=== PATIENT | female | born 1955 | race Caucasian/White ===

== ENCOUNTER → 2016-08-30 | Outpatient (CLI) | payer OTHER ==
--- NOTE | 2016-08-30 10:40 | REPMRS ---
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 Family history of breast cancer in sister at age 52. Benign ultrasound-guided core biopsy of the right breast, March 30, 2006. Taking unspecified hormones for 4 years 7 months. Digital Woman Screen Mammo: August 30, 2016 - Exam #: [id number] Bilateral CC and MLO view(s) were taken. Technologist: Anusha Bustillos, Technologist Prior study comparison: August 30, 2015, digital woman screen mammo performed at [facility] [facility]. August 27, 2014, digital woman screen mammo performed at [facility]. FINDINGS: There are scattered fibroglandular densities. There has been no change in the appearance of the mammogram from the prior studies. There is a mild amount of residual fibroglandular tissue which is fairly symmetric. There is no interval development of dominant mass, architectural distortion, or clustered microcalcification suggestive of malignancy. ASSESSMENT: BI-RADS/ACR category 1 mammogram. Negative. Recommendation Routine screening mammogram in 1 year (for women over age 40). This mammogram was interpreted with the aid of an FDA-approved computer-aided dectection system. Electronically Signed By: Kehinde Barron MD 08/30/16 [id number]
== END ==
LOC: M WHC 09:05
PROVIDERS: ATTEND Nurse Practitioner Women's Health
DX: Z12.31 Encounter for screening mammogram for malignant neoplasm of breast (principal); Z78.0 Asymptomatic menopausal state

== ENCOUNTER → 2016-10-04 | Outpatient (REF) | payer OTHER ==
[2016-10-04 12:20] LABS: ALBUMIN 3.3 GM/DL (3.2-5.2); ALBUMIN/GLOBULIN RATIO 1.14 (1.00-1.93); ALKALINE PHOSPHATASE 80 U/L (45-117); ALT/SGPT 24 U/L (12-78); ANION GAP 8 MEQ/L (8-16); AST/SGOT 19 U/L (15-37); BILIRUBIN,TOTAL 0.5 MG/DL (0.2-1.0); BLOOD UREA NITROGEN 22 MG/DL (7-18); CALCIUM LEVEL 8.9 MG/DL (8.8-10.2); CARBON DIOXIDE LEVEL 28 MEQ/L (21-32); CHLORIDE LEVEL 107 MEQ/L (98-107); CHOLESTEROL LEVEL 196 MG/DL (<200); CREATININE FOR GFR 0.65 MG/DL (0.55-1.02); GLOMERULAR FILTRATION RATE > 60.0 (>45); GLUCOSE, FASTING 103 MG/DL (80-110); POTASSIUM SERUM 4.5 MEQ/L (3.5-5.1); SODIUM LEVEL 143 MEQ/L (136-145); TOTAL PROTEIN 6.2 GM/DL (6.4-8.2); TRIGLYCERIDES LEVEL 99 MG/DL (<150)
== END ==
LOC: M SFHCCLAY 07:24
PROVIDERS: ATTEND Nurse Practitioner
DX: Z23 Encounter for immunization (principal)

== ENCOUNTER → 2017-01-23 | Outpatient (CLI) | payer OTHER ==
[~2017-01-23] MED LIST: ASPI81TA85 PO; COUM2.5T17 PO; LISI-538 PO; MELO7.5T7 PO; METF500T13 PO; MULT1TAB20 PO; OMEP10CASR PO; PERC5TAB12 PO
[2017-01-23 14:01] LABS: INR 0.86
[2017-01-23 14:28] LABS: MEAN CORPUSCULAR HEMOGLOBIN 30.3 pg (27.0-33.0); MEAN CORPUSCULAR HGB CONC 33.6 g/dl (32.0-36.5); MEAN CORPUSCULAR VOLUME 90.2 fl (80.0-96.0); RED CELL DISTRIBUTION WIDTH 14.1 % (11.5-14.5); WHITE BLOOD COUNT 6.9 K/mm3 (4.0-10.0)
[2017-01-23 14:54] LABS: ALBUMIN 3.4 GM/DL (3.2-5.2); ALBUMIN/GLOBULIN RATIO 1.21 (1.00-1.93); ALKALINE PHOSPHATASE 117 U/L (45-117); ALT/SGPT 139 U/L (12-78); ANION GAP 7 MEQ/L (8-16); AST/SGOT 57 U/L (15-37); BILIRUBIN,TOTAL 0.3 MG/DL (0.2-1.0); BLOOD UREA NITROGEN 23 MG/DL (7-18); CALCIUM LEVEL 8.8 MG/DL (8.8-10.2); CARBON DIOXIDE LEVEL 28 MEQ/L (21-32); CHLORIDE LEVEL 111 MEQ/L (98-107); CREATININE FOR GFR 0.68 MG/DL (0.55-1.02); GLOMERULAR FILTRATION RATE > 60.0 (>45); GLUCOSE, FASTING 92 MG/DL (80-110); POTASSIUM SERUM 4.3 MEQ/L (3.5-5.1); SODIUM LEVEL 146 MEQ/L (136-145); TOTAL PROTEIN 6.2 GM/DL (6.4-8.2)
--- NOTE | 2017-01-23 16:17 | REP ---
CHEST, TWO VIEWS: No comparison. There is no evidence of acute infiltrate. No pleural effusion is seen. The heart is normal in size. The mediastinal silhouette is unremarkable. The visualized osseous structures are intact. There are degenerative changes of the spine. IMPRESSION: No acute pulmonary disease. Signed by Kehinde Barron MD 01/23/2017 05:10 P
--- NOTE | 2017-01-25 19:44 | ECGEPIP ---
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
== END ==
LOC: M ADMPAT 10:23
PROVIDERS: ATTEND Orthopaedic Surgery
DX: Z01.818 Encounter for other preprocedural examination (principal); M17.11 Unilateral primary osteoarthritis, right knee

== ENCOUNTER → 2017-01-31 | Outpatient (REF) | payer OTHER ==
[2017-01-31 18:41] LABS: ALBUMIN 3.9 GM/DL (3.2-5.2); ALBUMIN/GLOBULIN RATIO 1.15 (1.00-1.93); ALKALINE PHOSPHATASE 120 U/L (45-117); ALT/SGPT 48 U/L (12-78); AST/SGOT 19 U/L (15-37); BILIRUBIN,DIRECT < 0.1 MG/DL (0.0-0.2); BILIRUBIN,TOTAL 0.4 MG/DL (0.2-1.0); TOTAL PROTEIN 7.3 GM/DL (6.4-8.2)
[2017-02-02 11:12] LABS: HEP C VIRUS AB SCREEN MEDICARE 0.1 INDEX (<0.8)
== END ==
LOC: M SFHCCLAY 10:11
PROVIDERS: ATTEND Family Medicine
DX: K76.89 Other specified diseases of liver (principal)
CPT/HCPCS: 80076; G0472

== ENCOUNTER 2017-02-05 07:27 | Inpatient (IN) | payer OTHER ==
[2017-01-23 11:24] VITALS: BP 118/68
--- NOTE | 2017-02-01 23:19 | HPE ---
DATE OF ANTICIPATED ADMISSION: 02/05/2017 ATTENDING PHYSICIAN: Jon Greenfiedl MD CHIEF COMPLAINT: Right knee pain and stiffness. HISTORY: The patient is a pleasant 61-year-old female with progressively worsening right knee pain and stiffness. She has failed to improve with conservative measures. She continues to have pain with activities of daily living and with weightbearing activities. She has consented for an elective right total knee arthroplasty with Dr. Jon Greenfield. Medical optimization pending with Dr. Leblanc. CURRENT MEDICATIONS: - metformin 500 mg daily - lisinopril 20 mg daily - meloxicam 75 mg daily - aspirin 81 mg daily - omeprazole 21 mg daily - Vagifem 10 mcg vaginally twice weekly ALLERGIES: There are no known drug allergies. CHRONIC MEDICAL CONDITIONS: Hypertension. Gastroesophageal reflux disease. Primary cardiomyopathy. Diabetes. Osteoarthritis. Postmenopausal symptoms. PAST SURGICAL HISTORY: There have been no past surgical procedures. SOCIAL HISTORY: The patient is a former smoker and occasionally consumes alcohol. She is , lives at home with her . REVIEW OF SYSTEMS: The patient denies fevers, chills, nausea, vomiting, or diarrhea. She denies chest pain, shortness of breath, headaches, lightheadedness or dizziness. No complaints of abdominal pain. She continues to have pain in the right knee with weightbearing activities and activities of daily living. PHYSICAL EXAMINATION: Well-nourished, well-developed female in no apparent distress. HEAD: Normocephalic. NECK: Supple without lymphadenopathy. HEART: Regular rate and rhythm. LUNGS: Clear to auscultation bilaterally. ABDOMEN: Soft, nontender to palpation. Bowel sounds are present. MUSCULOSKELETAL: The patient is walking today with a limp favoring the right knee and using a cane for assistance. Inspection of the right knee reveal no gross abnormalities. Her skin is intact. There is tenderness along the medial joint line. The patient has full extension of the knee and can flex to approximately 100 degrees. Right lower extremity strength his normal. No hip irritability was elicited with range of motion. Her calf is soft, nontender to palpations. Distally she is neurovascularly intact. VITAL SIGNS: Height 62.5 inches, weight 226 pounds, temperature 98.3. Blood pressure 156/80, heart rate 72, respirations 16. LABORATORY DATA: Chest x-ray: No acute pulmonary disease. EKG: Sinus bradycardia with sinus arhythmia. Inferior wall infarction, probably old. Poor R wave progression. Nasal and sinus culture shows normal valerie. Urinalysis negative with the exception of 6 RBCs on microscopic evaluation. Urine culture shows no growth of clinical significance. Comprehensive metabolic profile: Fasting glucose 92, blood urea nitrogen elevated at 23. Creatinine for GFR 0.68. GFR greater than 60. Sodium elevated at 146. Potassium 4.3, chloride elevated at 111. Carbon dioxide 23. Anion gap decreased at 7. Calcium 8.8. AST elevated at 57, ALT elevated at 139. Alkaline phosphatase 117. Total bilirubin 0.3. Total protein decreased at 6.2. Albumin 3.4, albumin globulin ratio 1.21. Complete blood count: WBC 6.9, RBC 4.6, hemoglobin 14, hematocrit 41.5, platelet count 171, erythrocyte sedimentation rate 8, prothrombin time decreased at 11.8. INR 0.86. ASSESSMENT: Right knee osteoarthritis with x-rays notable for end-stage degenerative changes. PLAN: The patient has consented for an elective right total knee arthroplasty with Dr. Greenfield. Medical optimization pending with Dr. Leblanc. [facility]
[~2017-02-05] VITALS: Ht 157.5 cm; Wt 104.3 kg
[~2017-02-05 07:27] MED LIST changes: -COUM2.5T17 PO; -PERC5TAB12 PO
[2017-02-05] MEDS ORDERED: LR 1,000 ML IV SCH ×2 (07:45→12:00)
[2017-02-05] MEDS ORDERED: LR 1,000 ML IV ONE (08:00)
[2017-02-05] MEDS ORDERED: EPINEPHrine INJ 1 MG/ML 1ML AMP As Ordered ONE (08:50)
[2017-02-05] MEDS ORDERED: ceFAZolin 1GM INJ (J0690) As Ordered ONE (08:50)
[2017-02-05] MEDS ORDERED: TRANEXAMIC ACID 100 MG/ML 10ML VIAL As Ordered ONE (08:51)
[2017-02-05] MEDS ORDERED: fentaNYL 100 MCG/2 ML INJECTION (J3010) As Ordered ONE ×2 (09:04→11:53)
[2017-02-05] MEDS ORDERED: MIDAZOLAM INJ 2 MG/2 ML VIAL (J2250) As Ordered ONE ×2 (09:04→10:00)
[2017-02-05] MEDS: fentaNYL 100 MCG/2 ML INJECTION (J3010) IV SCH ×2 (09:25→09:49)
[2017-02-05] MEDS ORDERED: BUPIVACAINE LIPOSOME/PF 1.3% 20 ML VIAL (13.3MG/ML)(EXPAREL) As Ordered ONE (09:43)
[2017-02-05] MEDS ORDERED: MIDAZOLAM INJ 2 MG/2 ML VIAL (J2250) IV ONE (10:00)
[2017-02-05] MEDS ORDERED: LIDOCAINE 2% INJ 100 MG/5 ML SDV (FOR ANES.) As Ordered ONE (10:52)
[2017-02-05] MEDS ORDERED: PROPOFOL 200 MG/20 ML VIAL As Ordered ONE ×2 (10:52→11:20)
[2017-02-05] MEDS ORDERED: ePHEDrine SULFATE 25 MG/5 ML(5MG/ML) SYRINGE As Ordered ONE (10:53)
--- NOTE | 2017-02-05 11:04 | HPE ---
DATE OF ADMISSION: 02/05/2017 Patient seen and examined. She wishes to go ahead with a right total knee arthroplasty. She understands the nature of this, the risks of bleeding, infection, damage to nerves, vessels, persistent pain, wear loosening, blood clots, medical problems, , among others. She understands she is at significantly higher risk due to her severe morbid obesity with a body mass index (BMI) over 14. She says she cannot tolerate the pain the way it is anymore. We will proceed with a right total knee arthroplasty. I do have more stabilized components available if we need them. I am planning on doing a posterior stabilized knee due to her significant varus deformity.
[2017-02-05] MEDS ORDERED: PERCOCET 5MG/325MG TAB As Ordered ONE (11:53)
[2017-02-05] MEDS: fentaNYL 100 MCG/2 ML INJECTION (J3010) IV PRN ×4 (11:55→12:20)
[2017-02-05] MEDS ORDERED: diphenhydrAMINE INJ 50MG/ML VIAL (J1200) IV PRN (12:00)
[2017-02-05] MEDS ORDERED: EPIDURAL/PCA KEYS XX PRN (12:00)
[2017-02-05] MEDS ORDERED: ACETAMINOPHEN TAB 650MG DOSE (2X325MG) PO PRN (12:00)
[2017-02-05] MEDS ORDERED: NALBUPHINE HCL 10 MG/ML AMP (J2300) IV PRN (12:00)
[2017-02-05] MEDS ORDERED: ONDANSETRON 4MG/2ML VIAL (J2405) IV PRN ×2 (12:00)
[2017-02-05] MEDS ORDERED: MORPHINE 1MG/ML IN 0.9% NACL 100ML IV BAG IV PRN (12:00)
[2017-02-05] MEDS ORDERED: FLEET ENEMA PR PRN (12:00)
[2017-02-05] MEDS ORDERED: PERCOCET 5MG/325MG TAB PO PRN (12:00)
[2017-02-05] MEDS ORDERED: NALOXONE INJ 0.4 MG/1 ML VIAL (J2310) IV PRN (12:00)
[2017-02-05] MEDS ORDERED: ROPIvacaine 0.5% 30 ML INJECTION (J2795) ONE (13:52)
[2017-02-05] MEDS ORDERED: DEXTROSE 50% 50 ML SYRINGE IV PRN (15:30)
[2017-02-05] MEDS ORDERED: GLUCAGON FOR INJ 1 MG VIAL (J1610) SC PRN (15:30)
[2017-02-05] MEDS ORDERED: GLUCOSE 4 GM CHEW TABLET PO PRN (15:30)
[2017-02-05 15:35] VITALS: BP 165/87
--- NOTE | 2017-02-05 15:35 | CR.PDOC ---
[facility] Consultation Consultation CONSULTATION REPORT FOR: Dr Greenfield REASON FOR CONSULTATION: Medical Management DATE OF VISIT: 02/05/17 ATTENDING: Dr. Clifton Jackson PCP: Dr Leblanc HPI: 61year oldF S/P Rt TKA as per Orthopedics POD 0. No acute medical complaints at this time. Pt states pain is controlled. Denies any fevers, chills, weakness, fatigue, Headache, Chest Pain, Shortness of breath, cough, palpitations, abdominal pain, N/V/D or changes in bowel or bladder habits. PMHx: Hypertension. Gastroesophageal reflux disease. Primary cardiomyopathy. Diabetes. Osteoarthritis. Postmenopausal symptoms. PSHX: Rt TKA 02/05/17 Colonoscopy 2008 2 C SECTIONS 74-- GALL BLADDER APPENDECTOMY ABDOMINAL HYSTERECTOMY, TOTAL RIGHT BREAST TUMOR REMOVED, BENIGN LAPAROSCOPY AREA REMOVED FROM RIGHT LOWER LEG 2011 LIPOMA REMOVED FROM LEFT ARM 11/2014 SOCHX: Marital Status: Tobacco use: denies ETOH: occasional Illicit Drugs: Denies FAMHX: Mother: DC Father: DM, HTN Siblings: Alive, sister with h/o breast CA Children: Alive, well Unexpected deaths due to medical reasons: None. ROS: As noted in HPI, otherwise 11pt ROS of systems reviewed and unremarkable. PE: GEN: 61yoF, appears stated age. Well-nourished, well developed. No acute distress. Alert and oriented x 3. Pleasant, interactive. HEENT: Normocephalic, atraumatic. Sclera are nonicteric. Conjunctiva without injection. Nose midline. No facial asymmetry. Moist mucous membranes. Dentition fair. Pharynx pink and moist, no cobblestoning. Neck supple, trachea midline. CHEST: Regular rate and rhythm, +S1, +S2 LUNGS: Clear to auscultation bilaterally. No wheezes, rales, or rhonchi. Breathing appears symmetric and easy. Patient is speaking in full sentences. No accessory muscle use. ABD: Round, soft, non-tender, non-distended. +Bowel sounds throughout. No rebound or guarding. No costovertebral angle tenderness. EXT: Dressing intact RLE. No lower extremity edema appreciated. SKIN: [place], dry, warm. Capillary refill <2sec. No rashes. NEURO: Alert and oriented x 3. No focal deficits appreciated. A&P: 61year oldF S/P Rt TKA as per Orthopedics POD 0. The pt is discussed with Dr Fitzpatrick, will be followed by [facility], Dr Clemons. 1. S/P Rt TKA. mgmt as per Orthopedics. Pain control as per Orthopedics. Bowel care as per Orthopedics. DVT prophylaxis as per Orthopedics. PT/OT as per orthopedics. CBC/CMP in AM. 2. HTN. Plan to restart Lisinopril in AM. BP 138/70. Monitor. 3. GERD. Continue PPI. 4. NIDDM. Metformin on hold. SSI. Thank you for your consultation. We will continue to follow along with you. Vital Signs/I&O Vital Signs Date Time Temp Pulse Resp B/P (MAP) Pulse Ox O2 Delivery O2 Flow Rate FiO2 02/05/17 15:00 97.5 61 16 138/70 (92) 94 Nasal Cannula 2 Laboratory Data Labs 24H Item Value Date Time White Blood Count 6.9 K/mm3 01/23/17 1203 Red Blood Count 4.60 M/mm3 01/23/17 1203 Hemoglobin 14.0 g/dl 01/23/17 1203 Hematocrit 41.5 % 01/23/17 1203 Mean Corpuscular Volume 90.2 fl 01/23/17 1203 Mean Corpuscular Hemoglobin 30.3 pg 01/23/17 1203 Mean Corpuscular Hemoglobin Concent 33.6 g/dl 01/23/17 1203 Red Cell Distribution Width 14.1 % 01/23/17 1203 Platelet Count 171 k/mm3 01/23/17 1203 Sodium Level 146 MEQ/L H 01/23/17 1203 Potassium Level 4.3 MEQ/L 01/23/17 1203 Chloride Level 111 MEQ/L H 01/23/17 1203 Carbon Dioxide Level 28 MEQ/L 01/23/17 1203 Anion Gap 7 MEQ/L L 01/23/17 1203 Blood Urea Nitrogen 23 MG/DL H 01/23/17 1203 Creatinine 0.68 MG/DL 01/23/17 1203 Glomerular Filtration Rate > 60.0 01/23/17 1203 Fasting Glucose 92 MG/DL 01/23/17 1203 Calcium Level 8.8 MG/DL 01/23/17 1203 Total Bilirubin 0.3 MG/DL 01/23/17 1203 Aspartate Amino Transf (AST/SGOT) 57 U/L H 01/23/17 1203 Alanine Aminotransferase (ALT/SGPT) 139 U/L H 01/23/17 1203 Aspartate Amino Transf (AST/SGOT) 19 U/L 01/31/17 1011 Alanine Aminotransferase (ALT/SGPT) 48 U/L 01/31/17 1011 Alkaline Phosphatase 117 U/L 01/23/17 1203 Total Protein 6.2 GM/DL L 01/23/17 1203 Albumin 3.4 GM/DL 01/23/17 1203 Albumin/Globulin Ratio 1.21 01/23/17 1203 CBC/BMP Laboratory Tests 02/05/17 08:01 Allergies Coded Allergies: No Known Allergies (Verified Allergy, Unknown, 12/04/07) Home Medications Scheduled (Multi Vitamin and Mineral) 1 Tab Tab, 1 TAB PO DAILY, (Reported) Aspirin (Aspir-81) 81 Mg Tab, 81 MG PO DAILY, #30 (Reported) Lisinopril (Lisinopril) 20 Mg Tab, 20 MG PO DAILY, (Reported) Metformin Hydrochloride (Metformin HCl) 500 Mg Tab, 500 MG PO DAILY, (Reported) Omeprazole (PriLOSEC) 10 Mg Capcr, 10 MG PO DAILY, (Reported) Scheduled PRN Meloxicam (Meloxicam) 7.5 Mg Tab, 7.5 MG PO QIDP PRN for pain, (Reported) GME ATTESTATION GME ATTESTATION My preceptor for this patient encounter was physically present in the building during the encounter and was fully available. As needed, all aspects of the patient interview, examination, medical decision making process, and medical care plan development were reviewed and approved by the preceptor. Preceptor is aware and concurs with the plan as stated in the body of this note and will attest to such by his/her cosignature. ATTENDING NOTE I have both independently examined this patient as well as reviewed the note. I have discussed in detail with the resident the findings and plan of treatment as documented in the note. I will continue to follow the patient and offer further guidance to the patients care as necessary during this hospital stay. Tiffanie Mayes MD Feb 05, 2017 15:35 LAY FITZPATRICK MD Feb 06, 2017 11:42
[2017-02-05 16:05] VITALS: BP 160/81
[2017-02-05] MEDS: ONDANSETRON 4MG/2ML VIAL (J2405) IV PRN (16:10)
[2017-02-05] MEDS ORDERED: WARFARIN SOD 5 MG TAB PO ONE (17:00)
[2017-02-05 17:05] VITALS: BP 165/82
[2017-02-05] MEDS: HumaLOG INSULIN (NovoLOG) PER UNIT SC SCH ×2 (17:42→20:44)
[2017-02-05] MEDS: LR 1,000 ML IV SCH (17:56)
[2017-02-05 18:05] VITALS: BP 165/75
--- NOTE | 2017-02-05 18:23 | RO ---
DATE OF PROCEDURE: 02/05/2017 PREOPERATIVE DIAGNOSIS: Right knee osteoarthritis, advanced POSTOPERATIVE DIAGNOSIS: Right knee osteoarthritis, advanced and some proximal tibial cysts. PROCEDURE: Right total knee arthroplasty using a PFC rotating platform posterior stabilized size 3 femur, size 3 tibial tray, 15 polyethylene and a 32 patellar button. SURGEON: Dr. Jon Greenfield NERVE SPECIALIST: Haja Love ANESTHESIA: Spinal ESTIMATED BLOOD LOSS: 50 mL COMPLICATIONS: None. INDICATIONS: A 61-year-old morbidly obese woman, body mass index (BMI) greater than 40, who has had gradually worsening knee pain that has been intolerable for her. She wished to go ahead with a knee replacement, and she understood the nature of this, the risks of bleeding, infection, damage to nerves, vessels, persistent pain, wear loosening, blood clots, medical problems, among others. She understood her risk is significantly higher for complications due to her morbid obesity. Conservative management had failed. DESCRIPTION OF PROCEDURE: The patient was taken to operating room and placed in supine position after spinal anesthesia was induced. The right lower extremity was prepped and draped in the usual sterile fashion. I created a longitudinal incision over the anterior aspect of the knee and sharp dissection was carried down through the copious subcutaneous tissue until the extensor mechanism was identified. I then performed a medial parapatellar arthrotomy per routine, everted the patella, flexed the knee up, removed some of the osteophytes and used the canal initiating reamer on the femoral side, the intramedullary guide set at 5 degrees of valgus and 10 mm cut. This was pinned in place by the child care center assistant director, and the distal femoral cut was made as I held the retractors. I sized the femur to be a 3 and then placed the drill holes in the end of the femur with the 3 degree external rotation guide and pinned on the 4-in-1 cutting block size 3. The remaining cuts were made as we protected soft tissues at all times. The posterior retractor was placed. I then used the tibial alignment guide set at the appropriate amount of valgus and posterior slope and ended up taking 2 off the low side because this was quite deficient medially, which amounted to 12 off of the high side. I anticipated that this cut would be thick enough that the posterior cruciate ligament (PCL) attachment would be attached to the piece that we were removing. A saw cut was made and first checked with the external alignment guide and was very pleased with the alignment and removed this excess bone. I did have to excise PCL. I had also removed some of the fat pad at the beginning for visualization, and I also did an extensive medial release at the beginning. At this point, the soft tissue was removed from either side of the knee and osteophytes from the posterior aspect of the knee were removed. There was a large loose body in the back of the knee that had to be removed. The tibial surface had some cystic changes in the posterior aspect of the tibia that were evident on the x-ray, and this had cystic material in it, which were then carefully curetted out so that the capsule and membrane were removed. I also irrigated this and it felt like this was a contained defect that I decided did not need stems in my opinion, although they were available. I felt that these relatively small areas could be just filled with cement. The tibial tray was then prepared. I sized to be a 3. This was pinned in place. I drilled, broached and then prepared the femur. We used the box size 3 guide, which was pinned in place and three cuts were made to remove this bone from the center. Trial components were inserted. I did use spacer blocks and the size 15 seemed to be appropriate in flexion and extension and had good soft tissue tension and alignment. So the trial components were inserted. I was very pleased with the full extension, the alignment and the stability in flexion and extension were excellent. She did have soft tissue impingement behind her knee with flexion beyond about 90 degrees or so. This was related to her obesity. The patella was then addressed and was relatively thin, so I took off a fairly thin section of bone superficially and sized the patella to be a 32. The drill holes were placed and the patella trial was placed. We put the knee through a range of motion, the patella tracked quite nicely. Overall, I was very pleased with the components. I then removed the trial components and irrigated copiously, made sure that the cystic areas were curetted out. They were pretty limited in size, especially after I had broached and drilled on the tibial tray. So copious irrigation was performed as the child care center assistant director prepared the bone cement in the modern technique on the back table. I then cemented on the tibial component and filled these relatively small contained defects with cement, impacted in the tibial component and removed excess bone cement. I then cemented on the femoral component and removed excess bone cement and placed a polyethylene, size 15 rotating platform posterior stabilized. Brought the knee out in extension and held some longitudinal force on it, pressure on the foot and made sure that there was no remaining loose cement. I then cemented on the patellar component after irrigating and drying and then copiously irrigated with antibiotic irrigation. TXA solution was placed, and we closed the deep layer with some interrupted #1 Vicryl sutures. I had also used the Exparel long-acting Marcaine solution and prior to placement of the component, I injected in the back of the capsule and around the periosteum. And after we closed the quad and arthrotomy, I then used the remaining Exparel with saline dilution, a total of 20 mL of Exparel, so this was injected around the quadriceps, around some of the subcutaneous tissue, etc.. The deep layer was also closed with running interrupted Stratafix suture starting at the midportion, and we each worked in opposite directions. The subcu was closed with #2-0 Vicryl and it had to be closed in layers proximally due to the thickness of it. The skin was closed with ligia. Sterile dressing was applied. Tourniquet was deflated and she was taken to recovery room in stable condition. There were no known complications. The plan will be routine postop for knee replacement. The child care center assistant director was instrumental in holding retractors and making one of the bone cuts, and assisting in wound closure, mixing the cement. This was coded as an unusually difficult procedure due to the patient's morbid obesity and BMI greater than 40 and the fact that her soft tissues were very thick and made it much more difficult to position the knee and to make the cuts, free up the medial release. It made it more difficult for visualization and for wound closure.
[2017-02-05 19:05] VITALS: BP 160/72
[2017-02-05 20:00] VITALS: BP 141/82
[2017-02-05] MEDS ORDERED: ONDANSETRON 4MG/2ML VIAL (J2405) IV ONE (20:30)
[2017-02-05] MEDS: OMEPRAZOLE 20 MG CAP PO SCH (20:44)
[2017-02-05] MEDS: SENOKOT S TAB PO SCH (20:44)
[2017-02-05] MEDS: LISINOPRIL 20 MG TAB PO SCH (20:44)
[2017-02-06] VITALS: BP 159/81
[2017-02-06] MEDS: LR 1,000 ML IV SCH (01:20)
[2017-02-06 06:00] VITALS: BP 135/71
[2017-02-06] MEDS ORDERED: ONDANSETRON 4 MG TAB (S0181) PO PRN (06:30)
[2017-02-06 07:01] LABS: BASO % 0.1 % (0.0-1.0); EOS # 0.1 K/mm3 (0.0-0.50); EOS % 0.5 % (0.0-3.0); LARGE UNSTAINED CELL % 0.3 % (0.0-4.0); LYMPH # 0.7 K/mm3 (1.5-4.5); LYMPH % 5.2 % (24.0-44.0); MEAN CORPUSCULAR HEMOGLOBIN 29.9 pg (27.0-33.0); MEAN CORPUSCULAR HGB CONC 32.5 g/dl (32.0-36.5); MEAN CORPUSCULAR VOLUME 91.8 fl (80.0-96.0); MONO # 0.5 K/mm3 (0.0-0.8); MONO % 3.8 % (0.0-5.0); NEUTROPHILS # 11.3 K/mm3 (1.8-7.7); NEUTROPHILS % 90.1 % (36.0-66.0); PLATELET COUNT, AUTOMATED 181 k/mm3 (150-450); WHITE BLOOD COUNT 12.6 K/mm3 (4.0-10.0)
[2017-02-06 07:06] LABS: INR 1.15
[2017-02-06 07:20] LABS: ALBUMIN 3.1 GM/DL (3.2-5.2); ALBUMIN/GLOBULIN RATIO 1.15 (1.00-1.93); ALKALINE PHOSPHATASE 83 U/L (45-117); ALT/SGPT 57 U/L (12-78); ANION GAP 6 MEQ/L (8-16); AST/SGOT 35 U/L (15-37); BILIRUBIN,TOTAL 0.4 MG/DL (0.2-1.0); BLOOD UREA NITROGEN 15 MG/DL (7-18); CALCIUM LEVEL 8.9 MG/DL (8.8-10.2); CARBON DIOXIDE LEVEL 30 MEQ/L (21-32); CHLORIDE LEVEL 104 MEQ/L (98-107); CREATININE FOR GFR 0.59 MG/DL (0.55-1.02); GLOMERULAR FILTRATION RATE > 60.0 (>45); GLUCOSE, FASTING 161 MG/DL (80-110); POTASSIUM SERUM 4.4 MEQ/L (3.5-5.1); SODIUM LEVEL 140 MEQ/L (136-145); TOTAL PROTEIN 5.8 GM/DL (6.4-8.2)
[2017-02-06] MEDS: MOM 30ML SUSPENSION UDC PO SCH (08:02)
[2017-02-06] MEDS: HumaLOG INSULIN (NovoLOG) PER UNIT SC SCH ×4 (08:02→21:00)
[2017-02-06] MEDS: SENOKOT S TAB PO SCH ×2 (08:02→21:39)
[2017-02-06] MEDS: OCUVITE 1 TAB PO SCH (08:02)
[2017-02-06] MEDS: MIRALAX *UNIT DOSE* 17GM PACKET PO SCH (08:02)
[2017-02-06] MEDS: PERCOCET 5MG/325MG TAB PO PRN ×4 (08:04→21:06)
[2017-02-06] MEDS ORDERED: MORPHINE 15 MG SA TAB PO SCH (09:00)
--- NOTE | 2017-02-06 09:23 | IPNPDOC ---
Subjective Date Seen The patient was seen on 02/06/17. Subjective Chief Complaint/HPI The patient is a 61-year-old female admitted with a reason for visit of Right Knee Arthritis. Events since last encounter Pt with good pain control. No new concerns. General: Denies: Fatigue Constitutional: Denies: Chills, Fever Pulmonary: Denies: Dyspnea, Cough Cardiovascular: Denies: Chest Pain, Palpitations Gastrointestinal: Denies: Nausea, Vomiting, Diarrhea Psych: Reports: Mood Normal Objective Physical Examination General Exam: Positive: Alert, No Acute Distress ENT Exam: Positive: Mucous membr. moist/pink Chest Exam: Positive: Clear to auscultation, Normal air movement Heart Exam: Positive: Rate Normal, Normal S1, Normal S2 Abdomen Exam: Positive: Normal bowel sounds, Soft, Negative: Tenderness Extremity Exam: Negative: Edema Psych Exam: Positive: Mental status NL, Mood NL Assessment /Plan Problems (1) Post-operative state Status: Acute Response to Treatment: Stable Discussed With: Patient, Health Care Proxy Problem Specific Plan: Consult Specialist, Monitor Clinically Problem Text: S/p R total knee, Pain controlled. Pain mgmt, bowel care, anticoag per ortho. (2) Hypertension Status: Chronic Response to Treatment: Stable Problem Specific Plan: Monitor Clinically Problem Text: On HD lisinopril, pressures stable. (3) DM2 (diabetes mellitus, type 2) Status: Chronic Response to Treatment: Stable Problem Specific Plan: Monitor Clinically Problem Text: Resume Metformin at d/c. Cont with SSI. (4) GERD (gastroesophageal reflux disease) Status: Chronic Response to Treatment: Stable Problem Specific Plan: Monitor Clinically Problem Text: Cont Prilosec. Plan/VTE VTE Prophylaxis Ordered?: Yes VS, I&O, 24H, Fishbone Vital Signs/I&O Vital Signs Date Time Temp Pulse Resp B/P (MAP) Pulse Ox O2 Delivery O2 Flow Rate FiO2 02/06/17 08:04 18 Room Air 02/06/17 06:00 97.9 64 135/71 (92) 97 2.0 I&O- Last 24 Hours up to 6 AM 02/06/17 06:00 Intake Total 2020 ml Output Total 1400 ml Balance 620 ml Laboratory Data 24H LABS Laboratory Tests 2 02/05/17 16:56: Bedside Glucose (Misc Panel) 138H 02/05/17 20:13: Bedside Glucose (Misc Panel) 161H 02/06/17 06:43: White Blood Count 12.6H, Red Blood Count 4.48, Hemoglobin 13.4, Hematocrit 41.1 , Mean Corpuscular Volume 91.8, Mean Corpuscular Hemoglobin 29.9, Mean Corpuscular Hemoglobin Concent 32.5, Red Cell Distribution Width 14.0, Platelet Count 181, Neutrophils (%) (Auto) 90.1H, Lymphocytes (%) (Auto) 5.2L, Monocytes (%) (Auto) 3.8, Eosinophils (%) (Auto) 0.5, Basophils (%) (Auto) 0.1, Neutrophils # (Auto) 11.3H, Lymphocytes # (Auto) 0.7L, Monocytes # (Auto) 0.5, Eosinophils # (Auto) 0.1, Basophils # (Auto) 0.0, Large Unclassified Cells % 0.3 , Large Unclassified Cells # 0.0, Prothrombin Time 14.9H, Prothromb Time International Ratio 1.15, Anion Gap 6L, Glomerular Filtration Rate > 60.0, Blood Urea Nitrogen 15, Creatinine 0.59, Sodium Level 140, Potassium Level 4.4, Chloride Level 104, Carbon Dioxide Level 30, Calcium Level 8.9, Aspartate Amino Transf (AST/SGOT) 35, Alanine Aminotransferase (ALT/SGPT) 57, Alkaline Phosphatase 83, Total Bilirubin 0.4, Total Protein 5.8L, Albumin 3.1L, Albumin/ Globulin Ratio 1.15 CBC/BMP Laboratory Tests 02/06/17 06:43 Red Blood Count 4.48, Mean Corpuscular Volume 91.8, Mean Corpuscular Hemoglobin 29.9, Mean Corpuscular Hemoglobin Concent 32.5, Red Cell Distribution Width 14.0 , Neutrophils (%) (Auto) 90.1 H, Lymphocytes (%) (Auto) 5.2 L, Monocytes (%) ( Auto) 3.8, Eosinophils (%) (Auto) 0.5, Basophils (%) (Auto) 0.1, Neutrophils # ( Auto) 11.3 H, Lymphocytes # (Auto) 0.7 L, Monocytes # (Auto) 0.5, Eosinophils # (Auto) 0.1, Basophils # (Auto) 0.0, Calcium Level 8.9, Aspartate Amino Transf ( AST/SGOT) 35, Alanine Aminotransferase (ALT/SGPT) 57, Alkaline Phosphatase 83, Total Bilirubin 0.4, Total Protein 5.8 L, Albumin 3.1 L ANITA WHITE PA-C Feb 06, 2017 09:23
[2017-02-06 10:00] VITALS: BP 133/69
--- NOTE | 2017-02-06 10:54 | REP ---
Right knee: Two views. History: Check placement. Findings: AP and lateral views of the right knee demonstrate a total right knee arthroplasty. Components are well aligned. There is periarticular soft tissue emphysema and swelling. Anterior skin ligia are seen. Signed by Clarence Buchanan MD 02/06/2017 12:15 P
[2017-02-06] MEDS: ONDANSETRON 4MG/2ML VIAL (J2405) IV PRN (15:55)
[2017-02-06] MEDS ORDERED: PROMETHAZINE 25 MG TAB PO PRN (16:30)
[2017-02-06] MEDS ORDERED: WARFARIN SOD 5 MG TAB PO ONE (17:00)
[2017-02-06 21:39] VITALS: BP 170/77
[2017-02-06] MEDS: LISINOPRIL 20 MG TAB PO SCH (21:39)
[2017-02-06] MEDS: OMEPRAZOLE 20 MG CAP PO SCH (21:39)
[2017-02-06 22:00] VITALS: BP 170/77
[2017-02-07] MEDS: PERCOCET 5MG/325MG TAB PO PRN ×4 (02:18→14:28)
[2017-02-07 06:00] VITALS: BP 145/84
[2017-02-07 07:17] LABS: MEAN CORPUSCULAR HEMOGLOBIN 30.5 pg (27.0-33.0); MEAN CORPUSCULAR HGB CONC 34.2 g/dl (32.0-36.5); MEAN CORPUSCULAR VOLUME 89.4 fl (80.0-96.0); RED CELL DISTRIBUTION WIDTH 13.9 % (11.5-14.5); WHITE BLOOD COUNT 8.8 K/mm3 (4.0-10.0)
[2017-02-07 07:24] LABS: INR 1.29
[2017-02-07] MEDS: MOM 30ML SUSPENSION UDC PO SCH (08:26)
[2017-02-07] MEDS: MIRALAX *UNIT DOSE* 17GM PACKET PO SCH (08:26)
[2017-02-07] MEDS: SENOKOT S TAB PO SCH (08:27)
[2017-02-07] MEDS ORDERED: COUM2.5T17 PO (08:27)
[2017-02-07] MEDS: OCUVITE 1 TAB PO SCH (08:27)
[2017-02-07] MEDS ORDERED: PERC5TAB12 PO (08:27)
[2017-02-07] MEDS: HumaLOG INSULIN (NovoLOG) PER UNIT SC SCH ×2 (08:27→12:54)
[2017-02-07 14:00] VITALS: BP 138/72
--- NOTE | 2017-02-09 10:37 | DSES ---
DATE OF ADMISSION: 02/05/2017 DATE OF DISCHARGE: 02/07/2017 DISCHARGE DIAGNOSIS: Right knee osteoarthritis status post right total knee arthroplasty. HISTORY: Lyla is a 61-year-old female with persistently worsening right knee pain and stiffness. She had failed to improve with conservative treatment and now elected for surgery for her continued discomfort. She has elected for right total knee arthroplasty. PROCEDURE PERFORMED: Right total knee arthroplasty. HOSPITAL COURSE: The patient presented on the day of surgery and underwent right total knee arthroplasty without complications. Afterwards the patient's pain was controlled and they were up with physical therapy per the protocol. There were no complications during the procedure or her hospital stay. The patient was discharged weightbearing as tolerated to her right lower extremity using a walker. She will use oral medications for pain control. She will use Coumadin and thromboembolic deterrent stockings (TEDS) for 30 days postoperatively for deep venous thrombosis (DVT) prophylaxis. She will followup in the office in 2 weeks for staple removal, and she will resume her normal medications and diet. Please refer to the medical record for further details. cc: MD Addis Cordero, ANP
== END 2017-02-07 15:00 | disposition home or self-care (01) | DRG 302 ==
LOC: M OR 07:27 → M MS5PR 15:30
PROVIDERS: ADMIT Orthopaedic Surgery; ATTEND Orthopaedic Surgery
PROC: 0SRC0J9 Replacement of Right Knee Joint with Synthetic Substitute, Cemented, Open Approach (ICD-10-PCS; principal; 2017-02-05 09:35)
DX: M17.11 Unilateral primary osteoarthritis, right knee (principal); E66.01 Morbid (severe) obesity due to excess calories; Z79.899 Other long term (current) drug therapy; Z79.82 Long term (current) use of aspirin; I10 Essential (primary) hypertension; K21.9 Gastro-esophageal reflux disease without esophagitis; E11.9 Type 2 diabetes mellitus without complications; I42.9 Cardiomyopathy, unspecified; Z87.891 Personal history of nicotine dependence; I25.2 Old myocardial infarction

== ENCOUNTER → 2017-02-08 | Outpatient (REF) | payer OTHER ==
[~2017-02-08] MED LIST changes: +COUM2.5T17 PO; +PERC5TAB12 PO
[2017-02-08 14:36] LABS: INR 1.44
== END ==
LOC: M SHH 13:50
PROVIDERS: ATTEND Nurse Practitioner Family
DX: Z51.81 Encounter for therapeutic drug level monitoring (principal); Z79.01 Long term (current) use of anticoagulants

== ENCOUNTER → 2017-02-13 | Outpatient (REF) | payer OTHER ==
[2017-02-13 15:02] LABS: INR 1.49
== END ==
LOC: M LAB REF 11:15
PROVIDERS: ATTEND Nurse Practitioner Family
DX: Z51.81 Encounter for therapeutic drug level monitoring (principal); Z79.01 Long term (current) use of anticoagulants

== ENCOUNTER → 2017-02-15 | Outpatient (REF) | payer OTHER ==
[2017-02-15 15:14] LABS: INR 1.57
== END ==
LOC: M LAB REF 11:00
PROVIDERS: ATTEND Nurse Practitioner Family
DX: Z51.81 Encounter for therapeutic drug level monitoring (principal); Z79.01 Long term (current) use of anticoagulants

== ENCOUNTER → 2017-02-19 | Outpatient (REF) | payer OTHER ==
[2017-02-19 15:15] LABS: INR 1.85
== END ==
LOC: M SHH 14:49
PROVIDERS: ATTEND Internal Medicine
DX: Z51.81 Encounter for therapeutic drug level monitoring (principal); Z79.01 Long term (current) use of anticoagulants

== ENCOUNTER → 2017-02-22 | Outpatient (REF) | payer OTHER ==
[2017-02-22 15:39] LABS: INR 1.72
== END ==
LOC: M LAB REF 14:57
PROVIDERS: ATTEND Nurse Practitioner Family
DX: Z79.01 Long term (current) use of anticoagulants (principal)

== ENCOUNTER → 2017-03-01 | Outpatient (REF) | payer OTHER ==
[2017-03-01 14:46] LABS: INR 1.55
== END ==
LOC: M SHH 13:35
PROVIDERS: ATTEND Nurse Practitioner Family
DX: Z79.01 Long term (current) use of anticoagulants (principal)

== ENCOUNTER → 2017-03-19 | Outpatient (REF) | payer OTHER | LOC: M SFHCCLAY 13:32 | PROVIDERS: ATTEND Nurse Practitioner | DX: E66.01 Morbid (severe) obesity due to excess calories (principal) ==

== ENCOUNTER → 2017-07-24 | Outpatient (CLI) | payer OTHER | LOC: M CLY 13:17 | DX: R42 Dizziness and giddiness (principal); R51 Headache | CPT/HCPCS: 70220 ==

== ENCOUNTER → 2017-07-24 | Outpatient (REF) | payer OTHER ==
[2017-07-24 17:58] LABS: BASO % 0.6 % (0.0-1.0); EOS # 0.1 10^3/uL (0.0-0.50); EOS % 1.3 % (0.0-3.0); HEMATOCRIT 43.5 % (36.0-47.0); HEMOGLOBIN 14.4 g/dl (12.0-16.0); IMMATURE GRANULOCYTE % 0.2 % (0-3.0); LYMPH # 2.2 10^3/uL (1.5-4.5); LYMPH % 34.9 % (24.0-44.0); MEAN CORPUSCULAR HEMOGLOBIN 30.9 pg (27.0-33.0); MEAN CORPUSCULAR HGB CONC 33.1 g/dl (32.0-36.5); MEAN CORPUSCULAR VOLUME 93.3 fl (80.0-96.0); MONO # 0.3 10^3/uL (0.0-0.8); MONO % 4.7 % (0.0-5.0); NEUTROPHILS # 3.7 10^3/uL (1.8-7.7); NEUTROPHILS % 58.3 % (36.0-66.0); PLATELET COUNT, AUTOMATED 235 10^3/uL (150-450); RED BLOOD COUNT 4.66 10^6/uL (4.00-5.40); RED CELL DISTRIBUTION WIDTH 14.6 % (11.5-14.5); WHITE BLOOD COUNT 6.3 10^3/uL (4.0-10.0)
[2017-07-24 18:27] LABS: ERYTHROCYTE SEDIMENTATION RATE 5 mm/hr (0-30)
[2017-07-24 19:33] LABS: ALBUMIN 3.6 GM/DL (3.2-5.2); ALKALINE PHOSPHATASE 90 U/L (45-117); ALT/SGPT 39 U/L (12-78); ANION GAP 7 MEQ/L (8-16); AST/SGOT 35 U/L (7-37); BILIRUBIN,TOTAL 0.3 MG/DL (0.2-1.0); BLOOD UREA NITROGEN 17 MG/DL (7-18); CALCIUM LEVEL 8.8 MG/DL (8.8-10.2); CARBON DIOXIDE LEVEL 29 MEQ/L (21-32); CHLORIDE LEVEL 108 MEQ/L (98-107); CREATININE FOR GFR 0.67 MG/DL (0.55-1.30); FREE T4 1.06 NG/DL (0.76-1.46); GLOMERULAR FILTRATION RATE > 60.0 (>45); GLUCOSE, FASTING 133 MG/DL (70-100); SODIUM LEVEL 144 MEQ/L (136-145); THYROID STIMULATING HORMONE 0.804 uIU/ML (0.358-3.740); TOTAL PROTEIN 6.6 GM/DL (6.4-8.2)
== END ==
LOC: M SFHCCLAY 13:09
DX: R53.82 Chronic fatigue, unspecified (principal)
CPT/HCPCS: 84443

== ENCOUNTER → 2017-08-01 | Outpatient (CLI) | payer OTHER | LOC: M RAD 09:43 | DX: R42 Dizziness and giddiness (principal); H91.90 Unspecified hearing loss, unspecified ear; I25.9 Chronic ischemic heart disease, unspecified | CPT/HCPCS: 70551 ==

== ENCOUNTER → 2017-08-31 | Outpatient (CLI) | payer OTHER | LOC: M WHC 09:46 | DX: Z12.31 Encounter for screening mammogram for malignant neoplasm of breast (principal) ==

== ENCOUNTER → 2017-11-15 | Outpatient (REF) | payer OTHER ==
[2017-11-15 11:49] LABS: ESTIMATED AVERAGE GLUCOSE 128 MG/DL (60-110); HEMOGLOBIN A1c 6.1 %
[2017-11-15 12:03] LABS: MALB URINE SIEMENS 20.6 MG/L; MAU/CREAT RATIO 22.3 MCG/MG (0.0-30.0)
[2017-11-15 12:20] LABS: CHOLESTEROL LEVEL 216 MG/DL (<200); CHOLESTEROL RISK RATIO 3.375 (<5); FREE T4 1.22 NG/DL (0.76-1.46); HDL CHOLESTEROL 64 MG/DL (>40); LDL CHOLESTEROL 130.2 MG/DL (<100); NON-HDL-C 152 MG/DL; THYROID STIMULATING HORMONE 0.923 uIU/ML (0.358-3.740); TRIGLYCERIDES LEVEL 109 MG/DL (<150)
== END ==
LOC: M SFHCCLAY 08:06
DX: E66.01 Morbid (severe) obesity due to excess calories (principal); R73.01 Impaired fasting glucose; I10 Essential (primary) hypertension

== ENCOUNTER → 2017-11-15 | Outpatient (REF) | payer OTHER ==
[2017-11-15 13:40] LABS: ALBUMIN 3.6 GM/DL (3.2-5.2); ANION GAP 7 MEQ/L (8-16); BLOOD UREA NITROGEN 17 MG/DL (7-18); CALCIUM LEVEL 9.1 MG/DL (8.8-10.2); CARBON DIOXIDE LEVEL 29 MEQ/L (21-32); CHLORIDE LEVEL 107 MEQ/L (98-107); CREATININE FOR GFR 0.76 MG/DL (0.55-1.30); GLOMERULAR FILTRATION RATE > 60.0 (>45); GLUCOSE, FASTING 116 MG/DL (70-100); PHOSPHORUS LEVEL 3.4 MG/DL (2.5-4.9); POTASSIUM SERUM 4.4 MEQ/L (3.5-5.1); SODIUM LEVEL 143 MEQ/L (136-145)
== END ==
LOC: M LABDRAWC 12:37
DX: I10 Essential (primary) hypertension (principal)

== ENCOUNTER → 2018-02-13 | Outpatient (CLI) | payer OTHER ==
[2018-02-13 08:56] LABS: HEMATOCRIT 43.4 % (36.0-47.0); HEMOGLOBIN 14.3 g/dl (12.0-15.5); MEAN CORPUSCULAR HEMOGLOBIN 29.3 pg (27.0-33.0); MEAN CORPUSCULAR HGB CONC 32.9 g/dl (32.0-36.5); MEAN CORPUSCULAR VOLUME 88.9 fl (80.0-96.0); PLATELET COUNT, AUTOMATED 206 10^3/uL (150-450); RED BLOOD COUNT 4.88 10^6/uL (4.00-5.40); RED CELL DISTRIBUTION WIDTH 14.1 % (11.5-14.5); WHITE BLOOD COUNT 7.4 10^3/uL (4.0-10.0)
[2018-02-13 09:04] LABS: INR 0.88
[2018-02-13 09:17] LABS: ALBUMIN 3.5 GM/DL (3.2-5.2); ALBUMIN/GLOBULIN RATIO 1.17 (1.00-1.93); ALKALINE PHOSPHATASE 108 U/L (45-117); ALT/SGPT 25 U/L (12-78); ANION GAP 8 MEQ/L (8-16); AST/SGOT 17 U/L (7-37); BILIRUBIN,TOTAL 0.3 MG/DL (0.2-1.0); BLOOD UREA NITROGEN 23 MG/DL (7-18); CALCIUM LEVEL 9.1 MG/DL (8.8-10.2); CARBON DIOXIDE LEVEL 25 MEQ/L (21-32); CHLORIDE LEVEL 110 MEQ/L (98-107); CREATININE FOR GFR 0.75 MG/DL (0.55-1.30); GLOMERULAR FILTRATION RATE > 60.0 (>45); GLUCOSE, FASTING 106 MG/DL (70-100); POTASSIUM SERUM 4.5 MEQ/L (3.5-5.1); SODIUM LEVEL 143 MEQ/L (136-145); TOTAL PROTEIN 6.5 GM/DL (6.4-8.2)
[2018-02-13 09:28] LABS: ERYTHROCYTE SEDIMENTATION RATE 7 mm/hr (0-30)
== END ==
LOC: M LAB 08:18
DX: Z01.818 Encounter for other preprocedural examination (principal)
CPT/HCPCS: 71046

== ENCOUNTER 2018-04-26 06:59 | Inpatient (IN) | payer OTHER ==
[2018-04-26] MEDS ORDERED: LR 1,000 ML IV (07:30)
[2018-04-26 07:45] LABS: GLUCOSE, FASTING 133 MG/DL (70-100)
[2018-04-26] MEDS ORDERED: fentaNYL 100 MCG/2 ML INJECTION (J3010) As Ordered (08:19)
[2018-04-26] MEDS ORDERED: MIDAZOLAM INJ 2 MG/2 ML VIAL (J2250) As Ordered ×2 (08:20→08:41)
[2018-04-26] MEDS: fentaNYL 100 MCG/2 ML INJECTION (J3010) IV (08:29)
[2018-04-26] MEDS: MIDAZOLAM INJ 2 MG/2 ML VIAL (J2250) IV (08:30)
[2018-04-26] MEDS ORDERED: PROPOFOL 200 MG/20 ML VIAL As Ordered ×7 (08:36→10:56)
[2018-04-26] MEDS ORDERED: BUPIVACAINE/DEXTROSE 0.75% 2 ML AMP As Ordered (08:37)
[2018-04-26] MEDS ORDERED: dexameTHASONE 4 MG/ML 1ML VIAL (J1100) As Ordered (08:39)
[2018-04-26] MEDS ORDERED: ONDANSETRON 4MG/2ML VIAL (J2405) As Ordered (08:39)
[2018-04-26] MEDS ORDERED: EPINEPHrine INJ 1 MG/ML 1ML AMP As Ordered (09:49)
[2018-04-26] MEDS: BUPIVACAINE LIPOSOME/PF 1.3% 20ML VIAL (13.3MG/ML)(EXPAREL)(C9290 PER1MG) As Ordered ×2 (09:58→10:34)
[2018-04-26] MEDS: ceFAZolin SOD 1 GM in D5W MINI-BAG PLUS 50 ML IV (10:10)
[2018-04-26] MEDS ORDERED: GLYCOPYRROLATE INJ 0.2 MG/ML 2 ML VIAL As Ordered (10:32)
[2018-04-26] MEDS: TRANEXAMIC ACID 100 MG/ML 10ML VIAL As Ordered (10:32)
[2018-04-26] MEDS: EPINEPHrine INJ 1 MG/ML 1ML AMP As Ordered (10:32)
[2018-04-26] MEDS: ceFAZolin 1GM INJ (J0690 PER 500MG) As Ordered (10:33)
[2018-04-26] MEDS ORDERED: ONDANSETRON 4MG/2ML VIAL (J2405) IV (12:15)
[2018-04-26] MEDS ORDERED: ACETAMINOPHEN TAB 650MG DOSE (2X325MG) PO (12:15)
[2018-04-26] MEDS ORDERED: FLEET ENEMA PR (12:15)
[2018-04-26] MEDS ORDERED: fentaNYL 100 MCG/2 ML INJECTION (J3010) IV (12:15)
[2018-04-26] MEDS: LR 1,000 ML IV ×2 (12:15→13:30)
[2018-04-26] MEDS ORDERED: HYDROMORPHONE HCL 0.5 MG/ 0.5 ML SYRINGE (J1170 PER 1) IV (12:15)
[2018-04-26] MEDS ORDERED: PERCOCET 5MG/325MG TAB As Ordered (13:17)
[2018-04-26] MEDS: PERCOCET 5MG/325MG TAB PO (13:19)
[2018-04-26] MEDS: HYDROMORPHONE HCL 0.5 MG/ 0.5 ML SYRINGE (J1170 PER 1) IV ×2 (18:18→21:41)
[2018-04-27] MEDS: HYDROMORPHONE HCL 0.5 MG/ 0.5 ML SYRINGE (J1170 PER 1) IV ×3 (02:27→09:42)
[2018-04-27 05:57] LABS: HEMATOCRIT 40.6 % (36.0-47.0); HEMOGLOBIN 13.3 g/dl (12.0-15.5); MEAN CORPUSCULAR HEMOGLOBIN 28.9 pg (27.0-33.0); MEAN CORPUSCULAR HGB CONC 32.8 g/dl (32.0-36.5); MEAN CORPUSCULAR VOLUME 88.1 fl (80.0-96.0); PLATELET COUNT, AUTOMATED 249 10^3/uL (150-450); RED BLOOD COUNT 4.61 10^6/uL (4.00-5.40); RED CELL DISTRIBUTION WIDTH 13.8 % (11.5-14.5); WHITE BLOOD COUNT 15.1 10^3/uL (4.0-10.0)
[2018-04-27 06:12] LABS: INR 1.05; PROTHROMBIN TIME 13.8 SECONDS (12.1-14.4)
[2018-04-27 06:19] LABS: ALBUMIN 3.1 GM/DL (3.2-5.2); ANION GAP 8 MEQ/L (8-16); BLOOD UREA NITROGEN 15 MG/DL (7-18); CALCIUM LEVEL 8.9 MG/DL (8.8-10.2); CARBON DIOXIDE LEVEL 26 MEQ/L (21-32); CHLORIDE LEVEL 105 MEQ/L (98-107); CREATININE FOR GFR 0.72 MG/DL (0.55-1.30); GLOMERULAR FILTRATION RATE > 60.0 (>45); GLUCOSE, FASTING 139 MG/DL (70-100); PHOSPHORUS LEVEL 3.7 MG/DL (2.5-4.9); POTASSIUM SERUM 4.2 MEQ/L (3.5-5.1); SODIUM LEVEL 139 MEQ/L (136-145)
[2018-04-27] MEDS: OMEPRAZOLE 20 MG CAP PO (08:40)
[2018-04-27] MEDS: MIRALAX *UNIT DOSE* 17GM PACKET PO (08:40)
[2018-04-27] MEDS: LISINOPRIL 40 MG TAB PO (08:40)
[2018-04-27] MEDS: MOM 30ML SUSPENSION UDC PO (08:40)
[2018-04-27] MEDS ORDERED: ROPIvacaine 0.5% 30 ML INJECTION (J2795 PER 1MG) (09:47)
[2018-04-27] MEDS ORDERED: dexameTHASONE 10 MG/1 ML VIAL PRES.FREE (J1100) (09:47)
[2018-04-27] MEDS ORDERED: LIDOCAINE 1% MDV 20ML VIAL (09:47)
[2018-04-27] MEDS ORDERED: traMADol 50 MG TAB PO (10:30)
[2018-04-27] MEDS: ONDANSETRON 4 MG TAB (S0181) PO (12:06)
[2018-04-27] MEDS: traMADol 50 MG TAB PO (13:41)
[2018-04-27] MEDS ORDERED: RIVAROXABAN 10 MG TAB (XARELTO) PO (18:00)
== END 2018-04-27 15:10 | disposition home or self-care (01) | DRG 302 ==
LOC: M OR 06:59 → M MS5PR 13:35
PROVIDERS: Orthopaedic Surgery
PROC: 0SRD0J9 Replacement of Left Knee Joint with Synthetic Substitute, Cemented, Open Approach (ICD-10-PCS; principal; 2018-04-26 08:55)
DX: M17.12 Unilateral primary osteoarthritis, left knee (principal); E66.01 Morbid (severe) obesity due to excess calories; I10 Essential (primary) hypertension; F32.9 Major depressive disorder, single episode, unspecified; N39.3 Stress incontinence (female) (male); Z79.899 Other long term (current) drug therapy; Z79.82 Long term (current) use of aspirin; K21.9 Gastro-esophageal reflux disease without esophagitis; R73.01 Impaired fasting glucose

== ENCOUNTER → 2018-11-27 | Outpatient (REF) | payer OTHER ==
[~2018-11-27] MED LIST changes: +IBUP-1114 PO; +LISI40TA PO; +OMEP20CA3 PO; +TRAM50TA2 PO; +XARE10TA PO
[2018-11-28 12:18] LABS: BASO # 0.1 10^3/uL (0.0-0.2); BASO % 0.6 % (0.0-1.0); EOS # 0.1 10^3/uL (0.0-0.50); EOS % 0.8 % (0.0-3.0); HEMATOCRIT 43.4 % (36.0-47.0); HEMOGLOBIN 14.1 g/dl (12.0-15.5); LYMPH # 2.1 10^3/uL (1.5-4.5); LYMPH % 25.2 % (24.0-44.0); MEAN CORPUSCULAR HEMOGLOBIN 30.5 pg (27.0-33.0); MEAN CORPUSCULAR HGB CONC 32.5 g/dl (32.0-36.5); MEAN CORPUSCULAR VOLUME 93.7 fl (80.0-96.0); MONO # 0.4 10^3/uL (0.0-0.8); MONO % 5.1 % (0.0-5.0); NEUTROPHILS # 5.6 10^3/uL (1.8-7.7); NEUTROPHILS % 68.1 % (36.0-66.0); PLATELET COUNT, AUTOMATED 233 10^3/uL (150-450); RED BLOOD COUNT 4.63 10^6/uL (4.00-5.40); WHITE BLOOD COUNT 8.3 10^3/uL (4.0-10.0)
[2018-11-28 12:57] LABS: ALBUMIN 3.6 GM/DL (3.2-5.2); ALT/SGPT 30 U/L (12-78); BILIRUBIN,TOTAL 0.2 MG/DL (0.2-1.0); BLOOD UREA NITROGEN 25 MG/DL (7-18); CALCIUM LEVEL 9.6 MG/DL (8.8-10.2); CARBON DIOXIDE LEVEL 27 MEQ/L (21-32); CHLORIDE LEVEL 108 MEQ/L (98-107); CHOLESTEROL LEVEL 209 MG/DL (<200); CHOLESTEROL RISK RATIO 3.603 (<5); CREATININE FOR GFR 0.68 MG/DL (0.55-1.30); FREE T4 1.12 NG/DL (0.76-1.46); GLOMERULAR FILTRATION RATE > 60.0 (>45); GLUCOSE, FASTING 95 MG/DL (70-100); HDL CHOLESTEROL 58 MG/DL (>40); LDL CHOLESTEROL 106 MG/DL (<100); NON-HDL-C 151 MG/DL; SODIUM LEVEL 142 MEQ/L (136-145); TOTAL PROTEIN 6.8 GM/DL (6.4-8.2); TRIGLYCERIDES LEVEL 227 MG/DL (<150)
[2018-11-28 13:18] LABS: HEMOGLOBIN A1c 6.1 %
[2018-11-29 10:48] LABS: HEPATITIS C VIRUS ABY INDEX < 0.0 INDEX (<0.8)
== END ==
LOC: M SFHCCLAY 15:17
PROVIDERS: ATTEND Nurse Practitioner Family
DX: Z11.59 Encounter for screening for other viral diseases (principal); I10 Essential (primary) hypertension; E66.01 Morbid (severe) obesity due to excess calories; R73.01 Impaired fasting glucose; M25.562 Pain in left knee

== ENCOUNTER → 2019-08-11 | Outpatient (CLI) | payer OTHER ==
[~2019-08-11] MED LIST changes: +OMEP1CAP73 PO; -OMEP20CA3 PO
--- NOTE | 2019-08-11 09:54 | REPMRS ---
Patient History The patient states she had a clinical breast exam in August 2019.Family history of breast cancer at age 52 in sister. Benign ultrasound-guided core biopsy of the right breast, March 30, 2006. Took unspecified hormones for 4 years 7 months. Digital Woman Screen Mammo: August 11, 2019 - Exam #: [id number] Bilateral CC and MLO view(s) were taken. Technologist: Jennifer Mendez, Technologist Prior study comparison: August 31, 2017, digital woman screen mammo performed at [facility]. August 30, 2016, digital woman screen mammo performed at [facility]. August 30, 2015, digital woman screen mammo performed at [facility]. FINDINGS: The breast tissue is heterogeneously dense. This may lower the sensitivity of mammography. There is a moderate amount of heterogeneously dense fibroglandular tissue which is fairly symmetric. There is no interval development of dominant mass, architectural distortion, or grouped microcalcification typical of malignancy. There has been no change in the appearance of the mammogram from the prior studies. 3-D tomosynthesis shows no additional findings. Assessment: BI-RADS/ACR category 2 mammogram. Benign Findings. Recommendation Routine screening mammogram of both breasts in 1 year (for women over age 40). This patient's Lifetime Breast Cancer RIsk is estimated at 10.9 %. This mammogram was interpreted with the aid of an FDA-approved computer-aided dectection system. Electronically Signed By: Harris Buchanan MD 08/11/19 [id number]
== END ==
LOC: M WHC 08:57
PROVIDERS: ATTEND Nurse Practitioner Women's Health
DX: Z12.31 Encounter for screening mammogram for malignant neoplasm of breast (principal)

== ENCOUNTER → 2019-11-11 | Outpatient (REF) | payer OTHER ==
[2019-11-11 11:50] LABS: BASO % 0.6 % (0.0-1.0); EOS # 0.1 10^3/uL (0.0-0.5); EOS % 1.5 % (0.0-3.0); HEMATOCRIT 46.5 % (36.0-47.0); HEMOGLOBIN 15.2 g/dl (12.0-15.5); LYMPH # 2.4 10^3/uL (1.5-5.0); LYMPH % 33.1 % (24.0-44.0); MEAN CORPUSCULAR HEMOGLOBIN 30.7 pg (27.0-33.0); MEAN CORPUSCULAR HGB CONC 32.7 g/dl (32.0-36.5); MEAN CORPUSCULAR VOLUME 93.9 fl (80.0-96.0); MONO # 0.3 10^3/uL (0.0-0.8); MONO % 4.2 % (0.0-5.0); NEUTROPHILS # 4.3 10^3/uL (1.5-8.5); NEUTROPHILS % 60.2 % (36.0-66.0); PLATELET COUNT, AUTOMATED 219 10^3/uL (150-450); RED BLOOD COUNT 4.95 10^6/uL (4.00-5.40); WHITE BLOOD COUNT 7.1 10^3/uL (4.0-10.0)
[2019-11-11 13:04] LABS: ALBUMIN 3.8 GM/DL (3.2-5.2); ALT/SGPT 32 U/L (12-78); BILIRUBIN,TOTAL 0.7 MG/DL (0.2-1.0); BLOOD UREA NITROGEN 18 MG/DL (7-18); CARBON DIOXIDE LEVEL 28 MEQ/L (21-32); CHLORIDE LEVEL 104 MEQ/L (98-107); CHOLESTEROL LEVEL 220 MG/DL (<200); CHOLESTEROL RISK RATIO 3.666 (<5); CREATININE FOR GFR 0.62 MG/DL (0.55-1.30); FREE T4 1.24 NG/DL (0.76-1.46); GLOMERULAR FILTRATION RATE > 60.0 (>45); GLUCOSE, FASTING 117 MG/DL (70-100); HDL CHOLESTEROL 60 MG/DL (>40); LDL CHOLESTEROL 127 MG/DL (<100); NON-HDL-C 160 MG/DL; POTASSIUM SERUM 4.5 MEQ/L (3.5-5.1); SODIUM LEVEL 138 MEQ/L (136-145); TOTAL PROTEIN 6.9 GM/DL (6.4-8.2); TRIGLYCERIDES LEVEL 163 MG/DL (<150)
== END ==
LOC: M SFHCCLAY 09:06
PROVIDERS: ATTEND Nurse Practitioner Family
DX: E66.01 Morbid (severe) obesity due to excess calories (principal); R73.01 Impaired fasting glucose; I10 Essential (primary) hypertension

== ENCOUNTER → 2020-07-30 | Outpatient (CLI) | payer MEDICARE, OTHER ==
[~2020-07-30] MED LIST changes: -ASPI81TA85 PO; +ASPI81TA86 PO; -LISI-538 PO; +LISI20TA33 PO; -LISI40TA PO; +LISI40TA4 PO
--- NOTE | 2020-08-03 15:30 | SLEEPHOME ---
DATE: 07/30/2020 ORDERED BY: Samra Alas NP Diagnostic home sleep testing was performed due to concern for the obstructive sleep apnea syndrome in this patient with a history of snoring . For testing, a nocturnal T3 respiratory monitoring device was used. Continuous record was made of pulse, oxygen saturation, air flow, chest and abdominal strain, and body position. Eleven hours and 13 minutes of data were reviewed. There were 8 hours and 26 minutes marked as time in bed. During the interval marked time in bed, there were 87 respiratory events identified of 10 seconds in duration or greater for a respiratory event index of 10.3. The events were primarily obstructive. Baseline pulse rate was 60 beats per minute. Pulse rate ranged 28 to 93. Baseline saturation was 92%. Saturations fell to 85%. Testing was performed in both the supine and nonsupine positions. IMPRESSION: Abnormal home sleep testing with repetitive respiratory events and oxygen desaturations to 85% with a respiratory event index of 10.3 is consistent with the obstructive sleep apnea syndrome. RECOMMENDATION: The patient should be encouraged to undergo a formal sleep evaluation.
== END ==
LOC: M SLEEP HO 09:41
PROVIDERS: ATTEND Physician Assistant
DX: R06.83 Snoring (principal)

== ENCOUNTER → 2021-02-28 | Outpatient (REF) | payer MEDICARE, OTHER ==
[2021-02-28 12:01] LABS: ALBUMIN 3.2 GM/DL (3.2-5.2); ALT/SGPT 39 U/L (12-78); BILIRUBIN,TOTAL 0.5 MG/DL (0.2-1.0); BLOOD UREA NITROGEN 20 MG/DL (7-18); CALCIUM LEVEL 8.8 MG/DL (8.8-10.2); CARBON DIOXIDE LEVEL 27 MEQ/L (21-32); CHLORIDE LEVEL 112 MEQ/L (98-107); CHOLESTEROL LEVEL 202 MG/DL (<200); CHOLESTEROL RISK RATIO 3.156 (<5); CREATININE FOR GFR 0.55 MG/DL (0.55-1.30); GLOMERULAR FILTRATION RATE > 60.0 (>45); GLUCOSE, FASTING 124 MG/DL (70-100); HDL CHOLESTEROL 64 MG/DL (>40); LDL CHOLESTEROL 108 MG/DL (<100); NON-HDL-C 138 MG/DL; POTASSIUM SERUM 4.4 MEQ/L (3.5-5.1); SODIUM LEVEL 145 MEQ/L (136-145); TOTAL PROTEIN 6.1 GM/DL (6.4-8.2); TRIGLYCERIDES LEVEL 148 MG/DL (<150)
[2021-02-28 12:20] LABS: HEMOGLOBIN A1c 6.3 %
== END ==
LOC: M SFHCCLAY 08:23
PROVIDERS: ATTEND Nurse Practitioner Family
DX: R73.01 Impaired fasting glucose (principal); I10 Essential (primary) hypertension; E66.01 Morbid (severe) obesity due to excess calories

== ENCOUNTER → 2021-09-28 | Outpatient (REF) | payer MEDICARE, OTHER ==
[2021-09-28 16:15] LABS: BASO # 0.1 10^3/uL (0.0-0.2); BASO % 0.8 % (0.0-1.0); EOS # 0.1 10^3/uL (0.0-0.5); EOS % 1.1 % (0.0-3.0); HEMATOCRIT 42.5 % (36.0-47.0); HEMOGLOBIN 14.2 g/dl (12.0-15.5); LYMPH # 2.1 10^3/uL (1.5-5.0); LYMPH % 32.3 % (24.0-44.0); MEAN CORPUSCULAR HEMOGLOBIN 31.6 pg (27.0-33.0); MEAN CORPUSCULAR HGB CONC 33.4 g/dl (32.0-36.5); MEAN CORPUSCULAR VOLUME 94.7 fl (80.0-96.0); MONO # 0.3 10^3/uL (0.0-0.8); MONO % 4.6 % (2.0-8.0); NEUTROPHILS # 3.9 10^3/uL (1.5-8.5); PLATELET COUNT, AUTOMATED 229 10^3/uL (150-450); RED BLOOD COUNT 4.49 10^6/uL (4.00-5.40); WHITE BLOOD COUNT 6.4 10^3/uL (4.0-10.0)
[2021-09-28 16:42] LABS: ALBUMIN 3.7 GM/DL (3.2-5.2); ALT/SGPT 36 U/L (12-78); BILIRUBIN,TOTAL 0.5 MG/DL (0.2-1.0); BLOOD UREA NITROGEN 22 MG/DL (7-18); CALCIUM LEVEL 9.6 MG/DL (8.8-10.2); CARBON DIOXIDE LEVEL 30 MEQ/L (21-32); CHLORIDE LEVEL 108 MEQ/L (98-107); CHOLESTEROL LEVEL 195 MG/DL (<200); FREE T4 1.01 NG/DL (0.76-1.46); GLOMERULAR FILTRATION RATE > 60.0 (>45); GLUCOSE, FASTING 106 MG/DL (70-100); HDL CHOLESTEROL 67 MG/DL (>40); LDL CHOLESTEROL 103 MG/DL (<100); NON-HDL-C 128 MG/DL; POTASSIUM SERUM 5.6 MEQ/L (3.5-5.1); SODIUM LEVEL 142 MEQ/L (136-145); THYROID STIMULATING HORMONE 0.692 uIU/ML (0.358-3.740); TOTAL PROTEIN 6.7 GM/DL (6.4-8.2); TRIGLYCERIDES LEVEL 126 MG/DL (<150)
[2021-09-28 19:14] LABS: HEMOGLOBIN A1c 6.1 %
== END ==
LOC: M SFHCCLAY 09:42
PROVIDERS: ATTEND Nurse Practitioner Family
DX: F43.21 Adjustment disorder with depressed mood (principal); F43.0 Acute stress reaction; E11.65 Type 2 diabetes mellitus with hyperglycemia; I10 Essential (primary) hypertension; Z63.4 Disappearance and death of family member

== ENCOUNTER → 2022-02-19 | Outpatient (CLI) | payer MEDICARE, OTHER ==
[~2022-02-19] MED LIST changes: +ASPI-1 PO; +ATIV1TAB10 PO; +IBUP200T46 PO; +LEXA1TAB PO; +VITMTA PO
== END ==
LOC: M LABSMTC 11:33
PROVIDERS: ATTEND Anesthesiology
DX: Z20.828 Contact with and (suspected) exposure to other viral communicable diseases (principal); Z11.59 Encounter for screening for other viral diseases

== ENCOUNTER 2022-02-23 06:48 | Day surgery (SDC) | payer MEDICARE, OTHER ==
[~2022-02-23] VITALS: Ht 157.5 cm; Wt 113.9 kg
[~2022-02-23 06:48] MED LIST changes: +NS 1,000 ML IV ONE
[2022-02-23] MEDS ORDERED: propofoL 200 MG/20 ML VIAL As Ordered ONE ×2 (07:17→07:18)
[2022-02-23] MEDS ORDERED: LIDOCAINE 2% 100MG/5ML SDV (FOR ANES.) As Ordered ONE (07:17)
[2022-02-23] MEDS ORDERED: SIMETHICONE 40MG/0.6ML DROPS 30ML As Ordered ONE (07:18)
[2022-02-23 08:13] VITALS: BP 167/77
== END 2022-02-23 18:31 | disposition home or self-care (01) ==
LOC: M OPP 06:48
PROVIDERS: ATTEND Surgery
DX: Z12.11 Encounter for screening for malignant neoplasm of colon (principal); Z79.1 Long term (current) use of non-steroidal anti-inflammatories (NSAID); Z79.84 Long term (current) use of oral hypoglycemic drugs; Z79.899 Other long term (current) drug therapy; Z88.5 Allergy status to narcotic agent; I10 Essential (primary) hypertension; I42.0 Dilated cardiomyopathy; K59.00 Constipation, unspecified; I25.2 Old myocardial infarction; F41.9 Anxiety disorder, unspecified; F32.9 Major depressive disorder, single episode, unspecified; Z85.828 Personal history of other malignant neoplasm of skin; Z87.891 Personal history of nicotine dependence

== ENCOUNTER → 2022-10-16 | Outpatient (REF) | payer MEDICARE, OTHER ==
[~2022-10-16] MED LIST changes: -NS 1,000 ML IV ONE
[2022-10-16 18:18] LABS: BASO # 0.1 10^3/uL (0.0-0.2); BASO % 0.9 % (0.0-1.0); EOS # 0.1 10^3/uL (0.0-0.5); EOS % 0.9 % (0.0-3.0); HEMATOCRIT 40.7 % (36.0-47.0); HEMOGLOBIN 13.5 g/dl (12.0-15.5); LYMPH # 2.2 10^3/uL (1.5-5.0); LYMPH % 32.7 % (24.0-44.0); MEAN CORPUSCULAR HEMOGLOBIN 32.5 pg (27.0-33.0); MEAN CORPUSCULAR HGB CONC 33.2 g/dl (32.0-36.5); MEAN CORPUSCULAR VOLUME 98.1 fl (80.0-96.0); MONO # 0.4 10^3/uL (0.0-0.8); MONO % 5.6 % (2.0-8.0); NEUTROPHILS # 4.1 10^3/uL (1.5-8.5); NEUTROPHILS % 59.6 % (36.0-66.0); PLATELET COUNT, AUTOMATED 233 10^3/uL (150-450); RED BLOOD COUNT 4.15 10^6/uL (4.00-5.40); WHITE BLOOD COUNT 6.8 10^3/uL (4.0-10.0)
[2022-10-16 18:40] LABS: CHOLESTEROL RISK RATIO 2.65 (<5); HDL CHOLESTEROL 61.8 MG/DL (>40); NON-HDL-C 102.2 MG/DL
[2022-10-16 18:45] LABS: ALBUMIN 3.5 G/DL (3.2-5.2); ALKALINE PHOSPHATASE 89 U/L (46-116); ALT/SGPT 25 U/L (7.0-40); AST/SGOT 42 U/L (<34); BILIRUBIN,TOTAL 0.4 MG/DL (0.3-1.2); BLOOD UREA NITROGEN 26 MG/DL (9-23); CALCIUM LEVEL 9.1 MG/DL (8.3-10.6); CARBON DIOXIDE LEVEL 27 MMOL/L (20-31); CHLORIDE LEVEL 110 MMOL/L (98-107); CREATININE FOR GFR 0.88 MG/DL (0.55-1.30); GLOMERULAR FILTRATION RATE > 60.0 (>45); GLUCOSE, FASTING 103 MG/DL (74-106); POTASSIUM SERUM 4.6 MMOL/L (3.5-5.1); SODIUM LEVEL 142 MMOL/L (136-145); THYROID STIMULATING HORMONE 0.643 uIU/ML (0.55-4.78); TOTAL PROTEIN 6.1 G/DL (5.7-8.2)
[2022-10-16 18:46] LABS: FREE T4 1.14 NG/DL (0.89-1.76)
== END ==
LOC: M SFHCCLAY 10:45
PROVIDERS: ATTEND Nurse Practitioner Family
DX: F43.21 Adjustment disorder with depressed mood (principal); F43.0 Acute stress reaction; E11.65 Type 2 diabetes mellitus with hyperglycemia; I10 Essential (primary) hypertension

== ENCOUNTER → 2023-10-23 | Outpatient (REF) | payer MEDICARE, OTHER ==
[2023-10-23 12:18] LABS: ALBUMIN 3.4 G/DL (3.2-5.2); ALKALINE PHOSPHATASE 76 U/L (46-116); ALT/SGPT 28 U/L (7.0-40); AST/SGOT 24 U/L (<34); BILIRUBIN,TOTAL 0.6 MG/DL (0.3-1.2); BLOOD UREA NITROGEN 19 MG/DL (9-23); CALCIUM LEVEL 9.4 MG/DL (8.3-10.6); CARBON DIOXIDE LEVEL 30 MMOL/L (20-31); CHLORIDE LEVEL 107 MMOL/L (98-107); CHOLESTEROL LEVEL 186 MG/DL (<200); CHOLESTEROL RISK RATIO 3.29 (<5); CREATININE FOR GFR 0.75 MG/DL (0.55-1.30); GLOMERULAR FILTRATION RATE > 60.0 (>45); GLUCOSE, FASTING 107 MG/DL (74-106); HDL CHOLESTEROL 56.5 MG/DL (>40); LDL CHOLESTEROL 103.7 MG/DL (<100); NON-HDL-C 129.5 MG/DL; POTASSIUM SERUM 5.2 MMOL/L (3.5-5.1); SODIUM LEVEL 141 MMOL/L (136-145); TRIGLYCERIDES LEVEL 129 MG/DL (<150)
[2023-10-23 12:20] LABS: FREE T4 1.24 NG/DL (0.89-1.76); THYROID STIMULATING HORMONE 0.771 uIU/ML (0.55-4.78)
[2023-10-23 12:41] LABS: CREATININE, URINE 79.7 MG/DL; MAU/CREAT RATIO 6.2 MCG/MG (0.0-30.0)
[2023-10-23 12:51] LABS: HEMOGLOBIN A1c 5.5 % (4.0-6.0)
== END ==
LOC: M SFHCCLAY 07:15
PROVIDERS: ATTEND Nurse Practitioner Family
DX: F43.21 Adjustment disorder with depressed mood (principal); F43.0 Acute stress reaction; E11.65 Type 2 diabetes mellitus with hyperglycemia; I10 Essential (primary) hypertension

== ENCOUNTER → 2025-03-02 | Outpatient (REF) | payer MEDICARE, OTHER ==
[~2025-03-02] MED LIST changes: +LISI40TA10 PO; -LISI40TA4 PO
[2025-03-02 13:22] LABS: BASO # 0.1 10^3/uL (0.0-0.2); BASO % 0.8 % (0.0-1.0); EOS # 0.1 10^3/uL (0.0-0.5); EOS % 1.3 % (0.0-3.0); LYMPH # 2.5 10^3/uL (1.5-5.0); LYMPH % 32.6 % (24.0-44.0); MONO # 0.4 10^3/uL (0.0-0.8); MONO % 5.1 % (2.0-8.0); NEUTROPHILS # 4.5 10^3/uL (1.5-8.5); NEUTROPHILS % 60.1 % (36.0-66.0); PLATELET COUNT, AUTOMATED 222 10^3/uL (150-450)
[2025-03-02 13:39] LABS: ESTIMATED AVERAGE GLUCOSE 126.0 MG/DL (60-110)
[2025-03-02 13:55] LABS: TOTAL 25(OH) VITAMIN D 29.0 NG/ML (20.0-100.0)
[2025-03-02 13:56] LABS: ALT/SGPT 20.0 U/L (7.0-40); AST/SGOT 23.0 U/L (<34); CALCIUM LEVEL 9.2 MG/DL (8.3-10.6); CARBON DIOXIDE LEVEL 29.0 MMOL/L (20-31); CHLORIDE LEVEL 109.0 MMOL/L (98-107); CHOLESTEROL LEVEL 202.0 MG/DL (<200); CHOLESTEROL RISK RATIO 3.29 (<5); CREATININE FOR GFR 0.81 MG/DL (0.55-1.30); GLOMERULAR FILTRATION RATE 78.0 (>39); LDL CHOLESTEROL 113.7 MG/DL (<100); NON-HDL-C 140.7 MG/DL; POTASSIUM SERUM 5.2 MMOL/L (3.5-5.1); SODIUM LEVEL 142.0 MMOL/L (136-145); TRIGLYCERIDES LEVEL 135.0 MG/DL (<150)
[2025-03-02 13:57] LABS: FREE T4 1.39 NG/DL (0.89-1.76)
== END ==
LOC: M SFHCCLAY 08:25
PROVIDERS: ATTEND Nurse Practitioner Family
DX: F43.21 Adjustment disorder with depressed mood (principal); F43.0 Acute stress reaction; E11.65 Type 2 diabetes mellitus with hyperglycemia; I10 Essential (primary) hypertension

== ENCOUNTER → 2025-03-06 | Outpatient (CLI) | payer MEDICARE, OTHER | LOC: M WHC 13:25 | PROVIDERS: ATTEND Nurse Practitioner Family | DX: Z00.00 Encounter for general adult medical examination without abnormal findings (principal); Z12.31 Encounter for screening mammogram for malignant neoplasm of breast; Z13.820 Encounter for screening for osteoporosis; R92.323 Mammographic fibroglandular density, bilateral breasts; M85.851 Other specified disorders of bone density and structure, right thigh ==